=== PATIENT | male | born 1980 | race Caucasian/White ===

== ENCOUNTER 2019-07-16 19:16 | Emergency (ER) | payer MEDICAID, OTHER ==
[~2019-07-16] VITALS: Ht 177.8 cm; Wt 79.5 kg
[2019-07-16 19:16] VITALS: BP 130/81
--- NOTE | 2019-07-16 20:14 | REP ---
HISTORY: Assess for foreign body. Two views were obtained. There is no evidence of a radiopaque foreign body. It should be remembered that wood fibers are not necessarily radiopaque. Electronically Signed by Luis Salazar DO 07/17/2019 08:30 A
== END 2019-07-16 20:13 | disposition home or self-care (01) ==
LOC: M ED 19:16
DX: M79.642 Pain in left hand (principal); S60.552A Superficial foreign body of left hand, initial encounter; W45.8XXA Other foreign body or object entering through skin, initial encounter

== ENCOUNTER → 2019-09-07 | Outpatient (CLI) | payer OTHER ==
[~2019-09-07] MED LIST: AMBI5TAB PO; CITA20TA6 PO; FERR325T3 PO; HYDR12.55 PO; K-TA10TA2 PO; MAGN200T PO; MELA3TAB49 PO; METH1TAB40 PO; NEUR100C PO; PRAZ5CAP PO; VITA100T59 PO
== END ==
LOC: M LABSMTC 11:11
PROVIDERS: ATTEND Anesthesiology
DX: Z01.818 Encounter for other preprocedural examination (principal); Z11.59 Encounter for screening for other viral diseases
CPT/HCPCS: C9803; U0003

== ENCOUNTER 2019-09-10 08:24 | Day surgery (SDC) | payer OTHER ==
[~2019-09-10] VITALS: Ht 177.8 cm; Wt 76.7 kg
[~2019-09-10 08:24] MED LIST changes: +LIDOCAINE 1% MDV 20ML VIAL SQ PRN; +LR 1,000 ML IV ONE; +ceFAZolin SOD 2 GM in IV 1 EA IV ONE
[2019-09-10] MEDS ORDERED: propofoL 200 MG/20 ML VIAL As Ordered ONE (09:16)
[2019-09-10] MEDS ORDERED: LIDOCAINE 2% 100MG/5ML SDV (FOR ANES.) As Ordered ONE (09:16)
[2019-09-10] MEDS ORDERED: MIDAZOLAM INJ 2MG/2ML VIAL (J2250 PER 1MG) As Ordered ONE (09:16)
[2019-09-10] MEDS ORDERED: fentaNYL 100 MCG/2 ML INJECTION (J3010) As Ordered ONE (09:17)
[2019-09-10] MEDS ORDERED: BUPIVACAINE/EPIN 0.25% 30 ML VIAL As Ordered ONE (10:01)
[2019-09-10] MEDS ORDERED: ONDANSETRON 4MG/2ML VIAL As Ordered ONE (10:15)
[2019-09-10] MEDS ORDERED: METOCLOPRAMIDE INJ 10MG/2ML VIAL (J2765 PER 1) As Ordered ONE (10:15)
[2019-09-10] MEDS ORDERED: ACETAMINOPHEN TAB 650MG DOSE (2X325MG) PO PRN (10:45)
[2019-09-10] MEDS ORDERED: ONDANSETRON 4MG/2ML VIAL IV PRN ×2 (10:45→11:00)
[2019-09-10] MEDS ORDERED: LR 1,000 ML IV SCH ×2 (10:45)
[2019-09-10] MEDS ORDERED: HYDROMORPHONE HCL 0.5 MG/ 0.5 ML SYRINGE (J1170 PER 1) IV PRN (10:45)
[2019-09-10] MEDS ORDERED: fentaNYL 100 MCG/2 ML INJECTION (J3010) IV PRN (10:45)
[2019-09-10] MEDS ORDERED: oxyCODONE 5MG TAB PO PRN (10:45)
[2019-09-10] MEDS ORDERED: PERCOCET 5MG/325MG TAB PO PRN (11:00)
[2019-09-10] MEDS ORDERED: MORPHINE 2 MG/ML 1ML VIAL (J2270) IV PRN (11:00)
[2019-09-10 12:05] VITALS: BP 127/80
--- NOTE | 2019-09-10 13:00 | RO ---
DATE OF PROCEDURE: 09/10/2019 PREOPERATIVE DIAGNOSIS: Left hand foreign body. POSTOPERATIVE DIAGNOSIS: Left hand foreign body. PROCEDURE: Left hand removal of foreign body. SURGEON: Dr. Renan Norton CORRECTION OFFICER HEAD: [employer] SUPERVISOR: Dr. Gee ANESTHESIA: General anesthetic. OPERATIVE PREAMBLE: This 39-year-old man felt like he got a splinter in his hand. He desired removal of that as it was bothering him. It stopped him from doing his job. We talked about the pros and cons, risks and benefits of nonsurgical versus surgical management for irrigation, debridement and removal of the foreign body. He wished to go ahead. We marked the left upper extremity and proceeded to surgery. OPERATIVE REPORT: The patient was brought to operating theater and placed supine on the operating room table. The hand table was used on the patient's left side. The elbow and bony prominences were padded. Tourniquet was applied to the left upper extremity. Appropriately padded. SCDs used on the legs. Two grams IV Ancef was administered. The limb was prepped and draped in the usual sterile fashion allowing over ten minutes for prep solution drying time. A preop time out was performed confirming the site and the patient surgery. The limb was elevated and the tourniquet inflated. Total tourniquet time was 5 minutes. I began by making a small 1-1/2 cm incision transversely at the site of the foreign body. I carried dissection down through the skin and subcutaneous tissue. Achieved meticulous hemostasis. I used 3 mL of 0.25% Marcaine with 1:100,000 epinephrine in and around the incision site. I identified the foreign body and removed that, . No damage to surrounding structures. I took down the tourniquet after thoroughly irrigating the wound. Subcutaneous tissues were closed with interrupted #3-0 Vicryl suture the skin with #3-0 Ethilon in horizontal mattress fashion. The skin was covered with wet to dry dressing followed by application of gauze overwrapped with Micheal dressing. The patient was transferred off the operating table and taken to the postanesthetic care unit in stable condition. All sponge, needle and instrument counts were correct. Estimated blood loss 10 mL. PLAN: The patient is to be activity as tolerated. Avoid any lifting. Prescription sent to the pharmacy. Discharged home according to discharge surgery criteria. Followup in the office in 2 weeks' time to discontinue the sutures. Change dressing on his own. Keep it clean and dry for the next 14 days.
== END 2019-09-10 12:14 | disposition home or self-care (01) ==
LOC: M SDC 08:24
PROVIDERS: ATTEND Orthopaedic Surgery Sports Medicine
DX: S60.552A Superficial foreign body of left hand, initial encounter (principal); X58.XXXA Exposure to other specified factors, initial encounter; Y92.89 Other specified places as the place of occurrence of the external cause; Y93.9 Activity, unspecified; Y99.9 Unspecified external cause status; Z91.013 Allergy to seafood; M54.5 Low back pain; F43.10 Post-traumatic stress disorder, unspecified; F41.9 Anxiety disorder, unspecified; F32.9 Major depressive disorder, single episode, unspecified; Z79.899 Other long term (current) drug therapy; Z87.820 Personal history of traumatic brain injury
CPT/HCPCS: 10120; 88300; J0690; J2250; J2405; J2765; J3010

== ENCOUNTER 2019-11-02 20:43 | Emergency (ER) | payer OTHER ==
[~2019-11-02 20:43] MED LIST changes: -LIDOCAINE 1% MDV 20ML VIAL SQ PRN; -LR 1,000 ML IV ONE; -ceFAZolin SOD 2 GM in IV 1 EA IV ONE
== END 2019-11-02 22:12 | disposition left against medical advice (07) ==
LOC: M ED 20:43
DX: Z53.21 Procedure and treatment not carried out due to patient leaving prior to being seen by health care provider (principal)

== ENCOUNTER → 2021-05-07 | Outpatient (CLI) | payer OTHER, MEDICAID ==
[~2021-05-07] MED LIST changes: +METH-1164 PO; -METH1TAB40 PO
== END ==
LOC: M PAIN 09:00
PROVIDERS: ATTEND Nurse Practitioner Family
DX: M51.16 Intervertebral disc disorders with radiculopathy, lumbar region (principal); G89.29 Other chronic pain; Z87.820 Personal history of traumatic brain injury; Z86.59 Personal history of other mental and behavioral disorders; Z91.013 Allergy to seafood; Z79.899 Other long term (current) drug therapy

== ENCOUNTER → 2021-09-13 | Outpatient (CLI) | payer OTHER, MEDICAID | LOC: M PAIN 11:00 | PROVIDERS: ATTEND Nurse Practitioner Family | DX: M51.16 Intervertebral disc disorders with radiculopathy, lumbar region (principal); G89.29 Other chronic pain; Z87.820 Personal history of traumatic brain injury; Z86.59 Personal history of other mental and behavioral disorders; Z91.013 Allergy to seafood; Z79.899 Other long term (current) drug therapy ==

== ENCOUNTER → 2022-02-13 | Outpatient (REF) | LOC: M PLAIMG 14:42 | PROVIDERS: ATTEND Internal Medicine | DX: M54.50 Low back pain, unspecified (principal); M25.562 Pain in left knee ==

== ENCOUNTER → 2022-08-08 | Outpatient (CLI) | payer MEDICAID, OTHER | LOC: M PAIN 15:00 | PROVIDERS: ATTEND Nurse Practitioner Family | DX: M51.16 Intervertebral disc disorders with radiculopathy, lumbar region (principal); G89.29 Other chronic pain; I10 Essential (primary) hypertension; Z86.59 Personal history of other mental and behavioral disorders; Z87.820 Personal history of traumatic brain injury; Z91.013 Allergy to seafood; Z79.899 Other long term (current) drug therapy ==

== ENCOUNTER → 2022-08-13 | Outpatient (CLI) | payer MEDICAID, OTHER ==
[~2022-08-13] MED LIST changes: +ISOVUE-M 300 61% 15ML VIAL As Ordered ONE; +LIDOCAINE 1% SDV 30ML VIAL As Ordered ONE; +NORCO, ANEXSIA 5/325MG TABLET (HYDROcodone/ACETAMINOPHEN) As Ordered ONE; +diazePAM 5MG TABLET As Ordered ONE; +methylPREDNISolone SUSP 40MG/ML 1ML VIAL (DEPO MEDROL) As Ordered ONE
== END ==
LOC: M PAIN 14:30
PROVIDERS: ATTEND Anesthesiology
DX: M51.16 Intervertebral disc disorders with radiculopathy, lumbar region (principal); G89.29 Other chronic pain; I10 Essential (primary) hypertension; Z87.820 Personal history of traumatic brain injury; Z86.59 Personal history of other mental and behavioral disorders; Z91.013 Allergy to seafood; Z79.899 Other long term (current) drug therapy
CPT/HCPCS: 62323; J1030; Q9967

== ENCOUNTER → 2022-09-20 | Outpatient (CLI) | payer MEDICAID, OTHER ==
[~2022-09-20] MED LIST changes: -ISOVUE-M 300 61% 15ML VIAL As Ordered ONE; -K-TA10TA2 PO; -LIDOCAINE 1% SDV 30ML VIAL As Ordered ONE; -NORCO, ANEXSIA 5/325MG TABLET (HYDROcodone/ACETAMINOPHEN) As Ordered ONE; +POTA-165 PO; -diazePAM 5MG TABLET As Ordered ONE; -methylPREDNISolone SUSP 40MG/ML 1ML VIAL (DEPO MEDROL) As Ordered ONE
== END ==
LOC: M PAIN 15:00
PROVIDERS: ATTEND Nurse Practitioner Family
DX: M51.16 Intervertebral disc disorders with radiculopathy, lumbar region (principal); G89.29 Other chronic pain; I10 Essential (primary) hypertension; Z87.820 Personal history of traumatic brain injury; Z86.59 Personal history of other mental and behavioral disorders; Z91.013 Allergy to seafood; Z79.899 Other long term (current) drug therapy